=== PATIENT | male | born 1960 | race Hispanic/Latino ===

== ENCOUNTER 2021-10-28 12:09 | Emergency (ER) | payer SELFPAY ==
[~2021-10-28] VITALS: Ht 162.6 cm; Wt 68.0 kg
[2021-10-28] MEDS ORDERED: AMOX/K CLAV875 M1 PO (13:26)
[2021-10-28 15:06] VITALS: BP 102/72
== END 2021-10-28 15:06 | disposition home or self-care (01) | DRG 605 ==
LOC: ED 12:09
DX: S81.851A Open bite, right lower leg, initial encounter (principal); W54.0XXA Bitten by dog, initial encounter; Y92.007 Garden or yard of unspecified non-institutional (private) residence as the place of occurrence of the external cause

== ENCOUNTER 2021-12-01 21:46 | Emergency (ER) | payer SELFPAY ==
[~2021-12-01] VITALS: Ht 162.6 cm; Wt 59.0 kg
[~2021-12-01 21:46] MED LIST: AMOX/K CLAV875 M1 PO
[2021-12-01 22:18] LABS: HEMATOCRIT 46.1 % (39.0-50.0); HEMOGLOBIN 15.4 g/dl (14.0-18.0); MEAN CELL VOLUME 93.3 fL CALC (80.0-100.0); MEAN CORPUSCULAR HGB 31.2 pG CALC (26.0-32.0); MEAN CORPUSCULAR HGB CONC 33.4 g/dL CAL (32.0-36.0); NEUT# 1.69 thou/uL (1.82-7.42); RED BLOOD COUNT 4.94 mill/uL (4.70-6.10)
[2021-12-01 22:37] LABS: ALBUMIN 4.7 g/dL (3.2-5.0); ALKALINE PHOSPHATASE 109 u/l (38-126); ANION GAP 15 (6-22 (CALC)); BILIRUBIN, TOTAL 0.9 mg/dL (0.0-1.4); BUN 8 mg/dL (9-20); BUN/CREATININE RATIO 13 (12-20 (CALC)); CARBON DIOXIDE 31 mmol/l (22-30); CHLORIDE 102 mmol/l (95-108); CREATININE 0.6 mg/dL (0.7-1.3); GFR > 60 ML/MIN (>=60 (CALC)); GFR FOR AFR.AMER. > 60 ML/MIN (>=60 (CALC)); POTASSIUM 4.2 mmol/l (3.5-5.1); SGOT/AST 187 u/l (17-59); SODIUM 144 mmol/l (137-146); TOTAL PROTEIN 8.2 g/dL (6.3-8.2)
[2021-12-01 22:45] LABS: ETHYL ALCOHOL 360 mg/dl (0-30)
[2021-12-02 04:23] LABS: URINE BILIRUBIN - DIPSTICK NEGATIVE (NEGATIVE); URINE BLOOD DIPSTICK NEGATIVE (NEGATIVE); URINE COLOR YELLOW; URINE GLUCOSE - DIPSTICK NEGATIVE (NEGATIVE); URINE KETONE NEGATIVE (NEGATIVE); URINE LEUK ESTERASE NEGATIVE (NEGATIVE); URINE NITRITE - DIPSTICK NEGATIVE (Negative); URINE PROTEIN - DIPSTICK NEGATIVE (NEG-TRACE); URINE UROBILINOGEN - DIPSTICK 0.2 E.U./dL (0.2)
[2021-12-02 14:00] VITALS: BP 136/78
== END 2021-12-02 14:15 | disposition home or self-care (01) | DRG 897 ==
LOC: ED 21:46
PROVIDERS: Family Medicine
DX: F10.129 Alcohol abuse with intoxication, unspecified (principal); Y90.7 Blood alcohol level of 200-239 mg/100 ml
CPT/HCPCS: J2060

== ENCOUNTER 2023-02-16 18:56 | Emergency (ER) | payer SELFPAY ==
[~2023-02-16] VITALS: Ht 162.6 cm; Wt 70.6 kg
[2023-02-16] VITALS (9 sets, daily range): BP systolic 81–120; BP diastolic 46–86
[2023-02-16 19:54] LABS: BASO% 0.2 % (0-3); EOS% 5.4 % (0-8); HEMATOCRIT 40.3 % (39.0-50.0); HEMOGLOBIN 13.8 g/dl (14.0-18.0); IMMATURE GRANULOCYTES 0.2 % (0.0-5.0); LYMPH% 17.6 % (15-41); MEAN CELL VOLUME 91.6 fL CALC (80.0-100.0); MEAN CORPUSCULAR HGB 31.4 pG CALC (26.0-32.0); MEAN CORPUSCULAR HGB CONC 34.2 g/dL CAL (32.0-36.0); MONO% 8.6 % (2-13); NEUT# 3.9 thou/uL (1.82-7.42); RED BLOOD COUNT 4.4 mill/uL (4.70-6.10); RED CELL DISTRI WIDTH 13.1 % (11.5-15.5)
[2023-02-16 20:07] LABS: ALBUMIN 4.4 g/dL (3.2-5.0); ALKALINE PHOSPHATASE 103 u/l (38-126); AMYLASE 95 u/l (30-110); ANION GAP 14 (6-22 (CALC)); BUN 5 mg/dL (9-20); BUN/CREATININE RATIO 8 (12-20 (CALC)); CARBON DIOXIDE 26 mmol/l (22-30); CHLORIDE 106 mmol/l (95-108); CREATININE 0.6 mg/dL (0.7-1.3); ETHYL ALCOHOL 291 mg/dl (0-30); GFR FOR AFR.AMER. > 60 ML/MIN (>=60 (CALC)); GFR OTHER RACES > 60 ML/MIN (>=60 (CALC)); LIPASE 265 u/l (23-300); POTASSIUM 3.7 mmol/l (3.5-5.1); SGOT/AST 219 u/l (17-59); SODIUM 143 mmol/l (137-146); TOTAL PROTEIN 7.3 g/dL (6.3-8.2)
[2023-02-16 21:33] LABS: URINE BILIRUBIN - DIPSTICK NEGATIVE (NEGATIVE); URINE BLOOD DIPSTICK NEGATIVE (NEGATIVE); URINE COLOR YELLOW; URINE GLUCOSE - DIPSTICK NEGATIVE (NEGATIVE); URINE KETONE NEGATIVE (NEGATIVE); URINE LEUK ESTERASE NEGATIVE (NEGATIVE); URINE PROTEIN - DIPSTICK NEGATIVE (NEG-TRACE); URINE SPECIFIC GRAVITY <=1.005; URINE UROBILINOGEN - DIPSTICK 0.2 E.U./dL (0.2)
[2023-02-16 21:36] LABS: URINE NITRITE - DIPSTICK NEGATIVE (Negative)
[2023-02-17 01:35] LABS: BASO% 0.2 % (0-3); EOS% 5.1 % (0-8); HEMATOCRIT 36.3 % (39.0-50.0); IMMATURE GRANULOCYTES 0.4 % (0.0-5.0); LYMPH% 31.8 % (15-41); MEAN CORPUSCULAR HGB 31.1 pG CALC (26.0-32.0); MEAN CORPUSCULAR HGB CONC 33.1 g/dL CAL (32.0-36.0); MONO% 8.3 % (2-13); NEUT# 2.89 thou/uL (1.82-7.42); NEUT% 54.2 % (42-76); RED BLOOD COUNT 3.86 mill/uL (4.70-6.10); RED CELL DISTRI WIDTH 13.3 % (11.5-15.5)
[2023-02-17 01:49] VITALS: BP 116/73
== END 2023-02-17 01:51 | DRG 379 ==
LOC: ED 18:56
PROVIDERS: Emergency Medicine
DX: K92.2 Gastrointestinal hemorrhage, unspecified (principal); F10.129 Alcohol abuse with intoxication, unspecified; Y90.8 Blood alcohol level of 240 mg/100 ml or more
CPT/HCPCS: S0164